=== PATIENT | male | born 1955 | race Caucasian/White ===

== ENCOUNTER 2020-02-13 10:20 | Emergency (ER) | payer OTHER ==
[2020-02-13] MEDS ORDERED: TETANUS/DIPHTHERIA/PERTUSSIS 0.5 ML SYRINGE IM ONE (12:18)
--- NOTE | 2020-02-13 12:37 | ED Physician Documentation ---
History of Present Illness - Stated complaint Stated Complaint: R FOOT INJ - Chief complaint Chief Complaint: General - History obtained from History obtained from: Patient - History of Present Illness Timing: Today, Yesterday Pain level max: 0 Pain level now: 0 - Additonal information Additional information: 64-year-old male presents to the emergency department after stepping on a nail with his left foot yesterday. He was wearing shoes at the time. Unknown last tetanus. Nothing makes it better or worse. Review of Systems Constitutional: denies: Fever Musculoskeletal: denies: Neck pain, Back pain Neurologic: denies: Headache PD PAST MEDICAL HISTORY - Past Medical History Past Medical History: No - Past Surgical History Past Surgical History: No - Allergies Allergies/Adverse Reactions: Allergies Allergy/AdvReac Type Severity Reaction Status Date / Time No Known Drug Allergies Allergy Verified 02/13/20 10:36 - Living Situation Living Situation: reports: With family Living Arrangement: reports: At home - Social History Does the pt smoke?: No Smoking Status: Never smoker - Family History Family history: reports: Non contributory PD ED PE NORMAL - Vitals Vital signs reviewed: Yes - General General: Alert and oriented X 3, No acute distress - Derm Derm: Warm and dry - Extremities Extremities: Other (Small puncture wound to the plantar aspect of the right foot. No bleeding. No signs of infection) - Neuro Neuro: Alert and oriented X 3 Results - Vitals Vitals: Vital Signs - 24 hr 02/13/20 10:37 Temperature 36.8 C Heart Rate 55 L Respiratory 16 Rate Blood Pressure 144/64 H O2 Saturation 100 Oxygen O2 Source Room air PD MEDICAL DECISION MAKING - ED course Complexity details: considered differential, d/w patient ED course: Tdap given. Wound care instructions given at bedside including warnings of infection. Patient counseled regarding signs and symptoms for which I believe and urgent re-evaluation would be necessary. Patient with good understanding of and agreement to plan and is comfortable going home at this time This document was made in part using voice recognition software. While efforts are made to proofread this document, sound alike and grammatical errors may occur. Departure - Departure Disposition: 01 Home, Self Care Clinical Impression: Puncture wound of plantar aspect of right foot Qualifiers: Encounter type: initial encounter Qualified Code(s): S91.331A - Puncture wound without foreign body, right foot, initial encounter Condition: Good Instructions: ED Wound Puncture General Follow-Up: your,doctor in 1 week [Other] Comments: Return if you worsen. Follow-up with your doctor for further care. Return if you notice redness, swelling or drainage from the wound. You were given a Tdap today.
[2020-02-13 12:40] VITALS: BP 140/66
== END 2020-02-13 12:39 | disposition home or self-care (01) ==
LOC: ED 10:20
DX: S91.331A Puncture wound without foreign body, right foot, initial encounter (principal); W45.0XXA Nail entering through skin, initial encounter; W22.8XXA Striking against or struck by other objects, initial encounter; Z23 Encounter for immunization
CPT/HCPCS: 90471; 99283

== ENCOUNTER 2020-02-16 09:45 | Outpatient (CLI) | payer OTHER | END 2020-02-16 23:59 | disposition home or self-care (01) | LOC: COV 09:45 | PROVIDERS: ATTEND Family Medicine | DX: Z11.59 Encounter for screening for other viral diseases (principal) ==

== ENCOUNTER 2020-10-07 08:00 | Outpatient (CLI) | payer MEDICARE, OTHER ==
[2020-10-07 12:05] LABS: BASOPHILS % (AUTO) 0.7 %; EOSINOPHILS # (AUTO) 0.4 10^3/uL (0.0-0.7); EOSINOPHILS % (AUTO) 7.8 %; HCT - HEMATOCRIT 41.7 % (42.0-52.0); HGB - HEMOGLOBIN 13.7 g/dL (14.0-18.0); LYMPHOCYTES # (AUTO) 2.4 10^3/uL (1.5-3.5); MEAN CORPUSCULAR HEMOGLOBIN 30.9 pg (27.0-31.0); MEAN CORPUSCULAR HGB CONC 32.9 g/dL (32.0-36.0); MEAN CORPUSCULAR VOLUME 93.9 fL (80.0-94.0); MEAN PLATELET VOLUME 9.7 fL (7.4-11.4); MONOCYTES # (AUTO) 0.5 10^3/uL (0.0-1.0); MONOCYTES % (AUTO) 9.1 %; NEUTROPHILS # (AUTO) 2.2 10^3/uL (1.5-6.6); NEUTROPHILS % (AUTO) 39.2 %; PLT - PLATELET COUNT 269 10^3/uL (130-450); RED BLOOD COUNT 4.44 10^6/uL (4.70-6.10); RED CELL DISTRIBUTION WIDTH 13.2 % (12.0-15.0); WHITE BLOOD COUNT 5.5 x10^3/uL (4.8-10.8)
[2020-10-07 13:12] LABS: ALBUMIN 4.1 g/dL (3.2-5.5); ALBUMIN/GLOBULIN RATIO 1.4 (1.0-2.2); ALKALINE PHOSPHATASE 71 IU/L (42-121); ALT ALANINE AMINOTRANSFERASE 15 IU/L (10-60); AST ASPARTATE AMINOTRANSFERASE 25 IU/L (10-42); BILIRUBIN,TOTAL 0.8 mg/dL (0.2-1.0); BUN - BLOOD UREA NITROGEN 14 mg/dL (6-20); CALCIUM 9.4 mg/dL (8.5-10.3); CARBON DIOXIDE - CO2 24 mmol/L (21-32); CHLORIDE 103 mmol/L (101-111); CHOL/HDL RATIO 3.3 (<5.0); CHOLESTEROL 264 mg/dL; CREATININE 1.1 mg/dL (0.6-1.2); GFR - MDRD 67 (>89); GLUCOSE 79 mg/dL (70-100); HDL CHOLESTEROL 80 mg/dL; LDL CHOLESTEROL,CALCULATED 161 mg/dL; POTASSIUM 4.4 mmol/L (3.5-5.0); SODIUM 137 mmol/L (135-145); TOTAL PROTEIN 7.1 g/dL (6.7-8.2); TRIGLYCERIDES 114 mg/dL; VLDL CHOLESTEROL 23 mg/dL
[2020-10-07 13:13] LABS: THYROID STIMULATING HORMONE 1.88 uIU/mL (0.34-5.60)
== END 2020-10-07 23:59 | disposition home or self-care (01) ==
LOC: LAB.WCP 08:00
PROVIDERS: ATTEND Nurse Practitioner Family
DX: Z00.00 Encounter for general adult medical examination without abnormal findings (principal); Z12.5 Encounter for screening for malignant neoplasm of prostate; Z13.220 Encounter for screening for lipoid disorders; Z13.29 Encounter for screening for other suspected endocrine disorder
CPT/HCPCS: 36415; 80050; 80061; G0103; 83721; 84153

== ENCOUNTER 2021-04-17 16:40 | Outpatient (CLI) | payer MEDICARE, OTHER ==
--- NOTE | 2021-04-18 09:31 | XRAY Report ---
PROCEDURE: Knee 4 View LT INDICATIONS: ARTHRITIS, L KNEE TECHNIQUE: 4 views of the left knee(s) were acquired. COMPARISON: None. FINDINGS: Bones: There are tricompartmental degenerative changes with tricompartmental osteophytes and severe m edial joint space narrowing. No fractures or dislocations. No suspicious bony lesions. Soft tissues: No joint effusion. No suspicious soft tissue calcifications. IMPRESSION: Degenerative changes of the left knee consistent with osteoarthritis. Reviewed by: Conrad Nagy on 04/18/2021 9:30 AM PDT Approved by: Conrad Nagy on 04/18/2021 9:30 AM PDT Station ID: [id number]
--- NOTE | 2021-04-18 15:16 | XRAY Report ---
PROCEDURE: Hip w/Pelvis 1V LT INDICATIONS: L HIP PX TECHNIQUE: AP pelvis with lateral view(s) of the left hip(s). COMPARISON: None. FINDINGS: Bones: No fractures or dislocations. Mild and symmetric joint space loss in both femoral acetabular joints. Pelvic ring appears intact. No suspicious bony lesions. Incidental note made of severe deg enerative disc change at the lumbosacral level. Soft tissues: The visualized bowel gas pattern is normal. Tiny ossification of the superior labrum. No suspicious soft tissue calcifications. IMPRESSION: 1. Mild and symmetric hip joint degeneration. 2. Lumbosacral disc degeneration. Reviewed by: Dedra Lopez MD on 04/18/2021 3:15 PM PDT Approved by: Dedra Lopez MD on 04/18/2021 3:15 PM PDT Station ID: [id number]
== END 2021-04-17 16:41 | disposition home or self-care (01) ==
LOC: DI.N 16:40
PROVIDERS: ATTEND Family Medicine
DX: M16.0 Bilateral primary osteoarthritis of hip (principal); M51.37 Other intervertebral disc degeneration, lumbosacral region; M17.12 Unilateral primary osteoarthritis, left knee

== ENCOUNTER 2022-10-16 13:33 | Outpatient (CLI) | payer MEDICARE, OTHER ==
--- NOTE | 2022-10-16 16:05 | XRAY Report ---
PROCEDURE: Calcaneus BILAT INDICATIONS: BILATERAL HEEL PAIN TECHNIQUE: Two views of the calcaneus were acquired. COMPARISON: None FINDINGS: Bones: No fractures or dislocations. No suspicious bony lesions. Osteophytes at the posterior calca nei bilaterally. Soft tissues: No suspicious calcifications. Achilles tendon appears normal. IMPRESSION: 1. Findings suggestive of Achilles tendinopathy. This could be further assessed with MRI, if clinical ly indicated. 2. No acute fracture. No osseous lesion. If symptoms and/or clinical suspicion for pathology continue , further assessment with repeat plain films, or advanced imaging (e.g., CT, MRI, or bone scan) is re commended for further assessment. Reviewed by: Juan Manuel Street MD on 10/16/2022 4:03 PM PDT Approved by: Juan Manuel Street MD on 10/16/2022 4:03 PM PDT Station ID: [id number]
== END 2022-10-16 13:34 | disposition home or self-care (01) ==
LOC: DI 13:33
PROVIDERS: ATTEND Nurse Practitioner Family
DX: M79.671 Pain in right foot (principal); M79.672 Pain in left foot; M76.60 Achilles tendinitis, unspecified leg

== ENCOUNTER 2023-04-24 07:13 | Outpatient (CLI) | payer MEDICARE, OTHER ==
[2023-04-24 11:57] LABS: BASOPHILS # (AUTO) 0.1 10^3/uL (0.0-0.1); EOSINOPHILS # (AUTO) 0.4 10^3/uL (0.0-0.7); EOSINOPHILS % (AUTO) 6.9 %; HCT - HEMATOCRIT 41.4 % (42.0-52.0); LYMPHOCYTES # (AUTO) 2.6 10^3/uL (1.5-3.5); LYMPHOCYTES % (AUTO) 43.8 %; MEAN CORPUSCULAR HEMOGLOBIN 31.2 pg (27.0-31.0); MEAN CORPUSCULAR HGB CONC 33.8 g/dL (32.0-36.0); MEAN CORPUSCULAR VOLUME 92.2 fL (80.0-94.0); MEAN PLATELET VOLUME 9.7 fL (7.4-11.4); MONOCYTES # (AUTO) 0.6 10^3/uL (0.0-1.0); MONOCYTES % (AUTO) 9.3 %; NEUTROPHILS # (AUTO) 2.3 10^3/uL (1.5-6.6); NEUTROPHILS % (AUTO) 38.8 %; PLT - PLATELET COUNT 238 10^3/uL (130-450); RED BLOOD COUNT 4.49 10^6/uL (4.70-6.10); RED CELL DISTRIBUTION WIDTH 13.5 % (12.0-15.0); WHITE BLOOD COUNT 5.9 x10^3/uL (4.8-10.8)
[2023-04-24 12:14] LABS: ALBUMIN 4.1 g/dL (3.2-5.5); ALBUMIN/GLOBULIN RATIO 1.4 (1.0-2.2); ALKALINE PHOSPHATASE 68 IU/L (42-121); ALT ALANINE AMINOTRANSFERASE 12 IU/L (10-60); AST ASPARTATE AMINOTRANSFERASE 21 IU/L (10-42); BILIRUBIN,TOTAL 0.7 mg/dL (0.2-1.0); BUN - BLOOD UREA NITROGEN 13 mg/dL (6-20); CALCIUM 9.3 mg/dL (8.5-10.3); CARBON DIOXIDE - CO2 27 mmol/L (21-32); CHLORIDE 104 mmol/L (101-111); CHOL/HDL RATIO 3.6 (<5.0); CHOLESTEROL 274 mg/dL; GFR - MDRD 74 (>89); GLUCOSE 92 mg/dL (74-104); HDL CHOLESTEROL 77 mg/dL; LDL CHOLESTEROL,CALCULATED 174 mg/dL; LDL/HDL RATIO 2.3 (<3.6); POTASSIUM 4.5 mmol/L (3.5-4.5); SODIUM 137 mmol/L (135-145); TOTAL PROTEIN 7.1 g/dL (6.4-8.9); TRIGLYCERIDES 115 mg/dL (48-352); VLDL CHOLESTEROL 23 mg/dL
[2023-04-24 12:37] LABS: THYROID STIMULATING HORMONE 3.39 uIU/mL (0.34-5.60)
== END 2023-04-24 07:14 | disposition home or self-care (01) ==
LOC: LAB.N 07:13
PROVIDERS: ATTEND Nurse Practitioner Family
DX: G25.81 Restless legs syndrome (principal); R03.0 Elevated blood-pressure reading, without diagnosis of hypertension; Z12.5 Encounter for screening for malignant neoplasm of prostate; Z13.220 Encounter for screening for lipoid disorders
CPT/HCPCS: 36415; 80053; 80061; 84443; 85025; G0103; 83721; 84153